=== PATIENT | male | born 1950 | race Caucasian/White ===

== ENCOUNTER 2021-10-25 09:30 | Emergency (ER) | payer MEDICAID, MEDICARE ==
[2021-10-25 10:48] LABS: ESTIMATED GFR 72 mL/min (>60)
[2021-10-25 10:50] LABS: TROPONIN I HIGH SENSITIVITY 63.4 pg/mL (<=60.3)
[2021-10-25] MEDS ORDERED: Ketorolac 30 MG/ML SDV IM ONE (11:41)
[2021-10-25] MEDS ORDERED: Aspirin 81 MG Tab.Chew PO ONE (11:41)
== END 2021-10-25 13:34 | disposition left against medical advice (07) ==
LOC: JP.ED 09:30
DX: R55 Syncope and collapse (principal); I25.10 Atherosclerotic heart disease of native coronary artery without angina pectoris; Z88.2 Allergy status to sulfonamides; Z53.8 Procedure and treatment not carried out for other reasons
CPT/HCPCS: 36415; 80053; 83880; 84484; 85025; 93005; 96372; 99284; A9270; J1885